=== PATIENT | female | born 1985 | race African-American/Black ===

== ENCOUNTER 2016-04-27 07:23 | Emergency (ER) | payer MEDICAID ==
[~2016-04-27] VITALS: Ht 162.6 cm; Wt 80.5 kg
[~2016-04-27 07:23] MED LIST: PREN-96 PO
[2016-04-27 07:30] VITALS: BP 155/88
== END 2016-04-27 11:26 | disposition home or self-care (01) ==
LOC: ER 07:24
DX: J02.9 Acute pharyngitis, unspecified (principal); Z79.899 Other long term (current) drug therapy

== ENCOUNTER 2016-05-10 13:08 | Emergency (ER) | payer MEDICAID ==
[~2016-05-10] VITALS: Ht 162.6 cm; Wt 80.5 kg
[2016-05-10 16:00] VITALS: BP 125/85
== END 2016-05-10 17:23 | disposition home or self-care (01) ==
LOC: ER 13:14
DX: H66.92 Otitis media, unspecified, left ear (principal); Z87.442 Personal history of urinary calculi